=== PATIENT | female | born 1965 | race Caucasian/White ===

== ENCOUNTER 2017-02-08 14:45 | Outpatient (CLI) | payer OTHER ==
--- NOTE | 2017-02-09 09:35 | DIAGNOSTIC IMAGING REPORT ---
PROCEDURE: MG B/L IMPLANTS - SCREENING INDICATION: SCREENING,IMPLANTS TECHNIQUE: CC and MLO digital views of each breast with CC and MLO digital implant-displacement views. COMPARISON: Mammograms of 01/20/2016 and 05/12/2013. FINDINGS: Computer-aided detection applied. Intact bilateral subpectoral saline implants. Dense parenchymal pattern with stable scattered microcalcifications. No significant interval change. IMPRESSION: 1. Negative mammogram with intact saline implants. RESULT CODE: 1- Negative. A. A negative report should not delay biopsy if a dominant or clinically suspicious mass is present. 10-15% of cancers are not identified by x-ray. B. A negative report may reinforce clinical impression. C. Adenosis and dense breasts may obscure an underlying neoplasm. D. False positive reports average 6-10%. E.. A yearly screening mammogram is recommended. A reminder letter will be scheduled.
== END 2017-02-08 23:00 ==
LOC: MAM SRH 14:45
DX: Z12.31 Encounter for screening mammogram for malignant neoplasm of breast (principal)